=== PATIENT | female | born 1980 | race Caucasian/White ===

== ENCOUNTER 2021-09-23 20:24 | Inpatient (IN) | payer SELFPAY ==
[2021-09-23 21:34] LABS: Urine Blood 2+ (Negative); Urine Glucose Negative (Negative); Urine Protein 1+ (Negative); Urine pH 5.5 (5.0-7.0)
[2021-09-23 21:35] LABS: Absolute Lymphocytes (CBC) 0.7 K/uL (0.7-4.9); Hematocrit 22.1 % (36.0-45.0); Lymphocytes % 7.7 % (15.3-44.8); MPV 11.3 fL (7.6-11.3); RBC Red Blood Cell Count 2.25 M/uL (3.86-4.86)
[2021-09-23 21:39] LABS: Protime INR 1.39
--- NOTE | 2021-09-23 21:44 | RAD REPORT ---
EXAM DESCRIPTION: RAD - Chest Single View - 09/23/2021 9:37 pm CLINICAL HISTORY: dizzinessshortness of breath COMPARISON: None TECHNIQUE: AP portable chest image was obtained 09/23/2021 9:37 pm . FINDINGS: Lungs are clear. Heart and vasculature are normal. No measurable pleural effusion and no p neumothorax. No acute bony abnormality seen. No acute aortic findings suspected. IMPRESSION: No acute cardiopulmonary process.
--- NOTE | 2021-09-23 21:48 | RAD REPORT ---
EXAM DESCRIPTION: CT - CTHCSPWOC - 09/23/2021 9:35 pm CLINICAL HISTORY: dizziness;Pain, headache, neck pain COMPARISON: No comparisons TECHNIQUE: Axial 5 mm thick images of the head were obtained. Axial 2 mm thick images of the cervic al spine were obtained with sagittal and coronal reconstruction images generated and reviewed. All CT scans are performed using dose optimization technique as appropriate and may include automated exposure control or mA/KV adjustment according to patient size. FINDINGS: No intracranial hemorrhage, mass, edema or acute intracranial finding. No suspicion for ac aleksandar infarction. No extra-axial fluid collections. Mastoid air cells and paranasal sinuses are clear. No globe or orbit abnormality seen. Cervical body height and alignment are normal. No disk space narrowing. Spurring and disc bulge chan es are present at C6-7. This does not appear to cause central spinal stenosis. No fracture or acute b vanessa abnormality. Central canal detail is inherently limited. No paraspinal mass or hematoma. IMPRESSION: Negative CT head examination for acute or significant finding. Negative CT cervical spine examination for acute or emergent finding. Central canal detail is inherently limited. Concerns for disc bulge or herniation or other central ca nal abnormality can be further assessed with MR imaging.
[2021-09-23 21:53] LABS: Barbiturates NEGATIVE (NEGATIVE); Benzodiazepines NEGATIVE (NEGATIVE); Cocaine NEGATIVE (NEGATIVE); METHAMPHETAM NEGATIVE (NEGATIVE); Methadone NEGATIVE (NEGATIVE); Opiates NEGATIVE (NEGATIVE); Phencyclidine NEGATIVE (NEGATIVE); THC Cannibis NEGATIVE (NEGATIVE)
[2021-09-23 21:57] LABS: Albumin 3.3 g/dL (3.4-5.0); Bilirubin Direct 1.2 mg/dL (0-0.2); Bilirubin Total 1.7 mg/dL (0.2-1.0); Magnesium 1.9 mg/dL (1.8-2.4); Protein, Total 6.6 g/dL (6.4-8.2); Troponin High Sensitivity 56.8 pg/mL (<58.9)
[2021-09-23 22:15] LABS: SARS-COV-2 RT PCR NEGATIVE (NEGATIVE)
[2021-09-23] MEDS ORDERED: NA CHLORIDE 0.9% 1,000 ML ONE (22:26)
[2021-09-23] MEDS ORDERED: KCL 20 MEQ/100 mL IVPB 100 ML IV ONE (22:43)
[2021-09-23] MEDS ORDERED: NA CHLORIDE 0.9% 500 ML ONE (23:14)
--- NOTE | 2021-09-24 00:09 | EDPHYS ---
Physician Documentation [facility] Name: Nydia Beasley Age: 40 yrs Sex: Female : 1980 Arrival Date: 09/23/2021 Time: 20:46 Bed 17 Private MD: ED Physician Aurelio Jesus HPI: 09/23 21:22 This 40 yrs old Female presents to ER via EMS with complaints of Dizziness. mh7 21:22 The patient presents with dizziness, lightheadedness. Onset: The symptoms/episode mh7 began/occurred 5 day(s) ago. Context: occurred at home, occurred while the patient was standing, just prior to the episode the patient experienced no apparent symptoms. Modifying factors: The symptoms are alleviated by nothing, the symptoms are aggravated by standing up. Associated signs and symptoms: Pertinent positives: nausea, vomiting, Pertinent negatives: abdominal pain, agitation, ataxia, blurred vision, chest pain, combativeness, confusion, diaphoresis, focal weakness, head injury, headache, near-syncope, numbness, palpitations, , seizure, shortness of breath, syncope, tingling. Severity of symptoms: At their worst the symptoms were moderate 3 day(s) ago, in the emergency department the symptoms have improved moderately. Patient's baseline: Neuro: alert and fully oriented, Motor: no deficits, Ambulation: walks without assistance, Speech: normal. Patient states that her recently . His was 6 days ago and she started to have dizziness with lightheaded sensation and nausea and vomiting the next day. She denies any fever, headache, cough, chest pain, abdominal pain, diarrhea, dysuria, numbness/tingling, or weakness.. 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 Flu vaccine is not up to date. - Social history:: Smoking status: Patient denies any tobacco usage or history of. Patient/guardian denies using alcohol, street drugs. ROS: 21:22 Constitutional: Negative for fever, chills, and weight loss, Eyes: Negative for injury, mh7 pain, redness, and discharge, ENT: Negative for injury, pain, and discharge, Cardiovascular: Negative for chest pain, palpitations, and edema, Respiratory: Negative for shortness of breath, cough, wheezing, and pleuritic chest pain, Back: Negative for injury and pain, : Negative for injury, bleeding, discharge, and swelling, MS/Extremity: Negative for injury and deformity, Skin: Negative for injury, rash, and discoloration, Neuro: Negative for headache, weakness, numbness, tingling, and seizure, Psych: Negative for depression, anxiety, suicide ideation, homicidal ideation, and hallucinations, Allergy/Immunology: Negative for hives, rash, and allergies, Endocrine: Negative for neck swelling, polydipsia, polyuria, polyphagia, and marked weight changes, Hematologic/Lymphatic: Negative for swollen nodes, abnormal bleeding, and unusual bruising. Exam: 21:22 Constitutional: This is a well developed, well nourished patient who is awake, alert, mh7 and in no acute distress. Head/Face: Normocephalic, atraumatic. Eyes: Pupils equal round and reactive to light, extra-ocular motions intact. Lids and lashes normal. Conjunctiva and sclera are non-icteric and not injected. Cornea within normal limits. Periorbital areas with no swelling, redness, or edema. Neck: Trachea midline, no thyromegaly or masses palpated, and no cervical lymphadenopathy. Supple, full range of motion without nuchal rigidity, or vertebral point tenderness. No Meningismus. Chest/axilla: Normal chest wall appearance and motion. Nontender with no deformity. No lesions are appreciated. Cardiovascular: Regular rate and rhythm with a normal S1 and S2. No gallops, murmurs, or rubs. Normal PMI, no JVD. No pulse deficits. Respiratory: Lungs have equal breath sounds bilaterally, clear to auscultation and percussion. No rales, rhonchi or wheezes noted. No increased work of breathing, no retractions or nasal flaring. Abdomen/GI: Soft, non-tender, with normal bowel sounds. No distension or tympany. No guarding or rebound. No evidence of tenderness throughout. Back: No spinal tenderness. No costovertebral tenderness. Full range of motion. Skin: Warm, dry with normal turgor. Normal color with no rashes, no lesions, and no evidence of cellulitis. MS/ Extremity: Pulses equal, no cyanosis. Neurovascular intact. Full, normal range of motion. Neuro: Awake and alert, GCS 15, oriented to person, place, time, and situation. Cranial nerves II-XII grossly intact. Motor strength 5/5 in all extremities. Sensory grossly intact. Cerebellar exam normal. Normal gait. Psych: Awake, alert, with orientation to person, place and time. Behavior, mood, and affect are within normal limits. 09/24 00:05 : CVA tenderness, is absent, Pelvic Exam: External exam: is normal, Speculum exam: [facility] scant bleeding, blood clots in vaginal vault, no cervicitis, os that is closed, no tissue in cervix is seen, no tissue in vagina is seen, bimanual exam reveals no cervical motion tenderness, os that is closed, normal sized uterus, no adnexa tenderness or masses bilaterally, the nurse was present for the exam, Bladder: is normal. Vital Signs: 09/23 20:57 BP 96 / 60; Pulse 79; Resp 20; Temp 98.4(O); Pulse Ox 99% ; Pain 0/10; sf1 09/24 00:58 BP 95 / 70; Pulse 76; Resp 18; Pulse Ox 100% ; sf1 03:12 BP 107 / 68; Pulse 76; Resp 18; Pulse Ox 97% ; sf1 MDM: 00:06 Differential diagnosis: cardiac arrhythmia, CVA, generalized weakness, GI bleed, head mh7 injury, hyperventilation, hypovolemia, idiopathic dizziness, near-syncope, , sepsis, syncope, vertigo. Data reviewed: vital signs, nurses notes, lab test result(s), cardiac enzymes, CBC, drug level(s), acetaminophen, alcohol, salicylate, electrolytes, urinalysis, urine drug screen, EKG, radiologic studies, CT scan, plain films. Data interpreted: Pulse oximetry: on room air is 99 %. Interpretation: normal. Counseling: I had a detailed discussion with the patient and/or guardian regarding: the historical points, exam findings, and any diagnostic results supporting the discharge/admit diagnosis, lab results, radiology results, the need for further work-up and treatment in the hospital. Response to treatment: the patient's symptoms have mildly improved after treatment. 00:09 Patient medically screened. [facility] 09/23 21:03 Order name: Basic Metabolic Panel [facility] 09/23 21:03 Order name: CBC with Diff [facility] 09/23 21:03 Order name: LFT's; Complete Time: 22:31 [facility] 09/23 21:03 Order name: Magnesium; Complete Time: 22:31 [facility] 09/23 21:03 Order name: NT PRO-BNP; Complete Time: 22:31 [facility] 09/23 21:03 Order name: PT-INR; Complete Time: 22:00 [facility] 09/23 21:03 Order name: Troponin HS; Complete Time: 22:31 [facility] 09/23 21:03 Order name: UDS; Complete Time: 22:00 [facility] 09/23 21:03 Order name: Lipase; Complete Time: 22:31 [facility] 09/23 21:03 Order name: Basic Metabolic Panel; Complete Time: 22:31 [facility] 09/23 21:03 Order name: CBC with Automated Diff; Complete Time: 22:00 [facility] 09/23 21:05 Order name: COVID-19/FLU A+B (Document "Date of Onset" if Symptomatic); Complete Time: [facility] :09/23 21:28 Order name: Acetaminophen; Complete Time: 23:48 [facility] 09/23 21:28 Order name: Salicylate [facility] 09/23 21:03 Order name: XRAY Chest (1 view); Complete Time: 22:00 [facility] 09/23 21:03 Order name: EKG; Complete Time: 21:03 [facility] 09/23 21:05 Order name: CT Head C Spine; Complete Time: 22:00 [facility] 09/23 21:28 Order name: ETOH Level; Complete Time: 23:48 [facility] 09/23 21:33 Order name: Urine Dipstick-Ancillary; Complete Time: 22:00 [facility] 09/23 22:32 Order name: Type And Screen [facility] 09/23 22:34 Order name: CT Abd/Pelvis - Without Contrast [facility] 09/23 22:36 Order name: CPK; Complete Time: 23:48 [facility] 09/23 23:26 Order name: Urine --Ancillary (enter results); Complete Time: 23:48 9 09/24 00:54 Order name: Abdomen Exam Complete [facility] 09/24 01:18 Order name: ABO/RH no charge [facility] 09/24 02:18 Order name: Pelvis Complete [facility] 09/24 02:36 Order name: CONS Physician Consult [facility] 09/24 02:46 Order name: Urine Dipstick-Ancillary [facility] 09/23 21:03 Order name: Cardiac monitoring; Complete Time: 21:36 [facility] 09/23 21:03 Order name: EKG - Nurse/Tech; Complete Time: 21:14 [facility] 09/23 21:03 Order name: IV Saline Lock; Complete Time: 21:14 [facility] 09/23 21:03 Order name: Labs collected and sent; Complete Time: 21:14 [facility] 09/23 21:03 Order name: O2 Per Protocol; Complete Time: 21:14 [facility] 09/23 21:03 Order name: O2 Sat Monitoring; Complete Time: 21:14 [facility] 09/23 21:03 Order name: Urine Dipstick-Ancillary (obtain specimen); Complete Time: 21:36 [facility] 09/23 21:03 Order name: Urine Test (obtain specimen); Complete Time: 21:36 [facility] 09/23 21:28 Order name: Orthostatics; Complete Time: 00:38 [facility] Administered Medications: 09/23 22:45 Drug: Potassium Chloride 20 mEq Route: IV; Rate: per protocol; Site: left antecubital; sf1 Disposition Summary: 09/24/21 00:09 Hospitalization Ordered Hospitalization Status: Inpatient Admission [facility] Provider: Vijaya Fierro [facility] Condition: Stable [facility] Problem: new [facility] Symptoms: have improved [facility] Bed/Room Type: Standard [facility] Room Assignment: 216(09/24/21 03:01) mw Diagnosis - Dizziness and giddiness [facility] - Hypo-osmolality and hyponatremia [facility] - Hypokalemia [facility] - Acute kidney failure, unspecified [facility] Forms: - Medication Reconciliation Form [facility] - SBAR form [facility] Signatures: Dispatcher [employer] [facility] Shakira Funk RN RN mw Holmes, Maurice, MD MD 7 ZiggysBecky RN RN sf1 Corrections: (The following items were deleted from the chart) 09/24 02:18 00:55 Transvaginal Study Probe ordered. [facility] 03:01 00:09 mh7 mw
--- NOTE | 2021-09-24 00:09 | ER ---
Nurse's Notes [facility] Name: Nydia Beasley Age: 40 yrs Sex: Female : 1980 Arrival Date: 09/23/2021 Time: 20:46 Bed 17 Private MD: Diagnosis: Dizziness and giddiness;Hypo-osmolality and hyponatremia;Hypokalemia;Acute kidney failure, unspecified Presentation: 09/23 20:58 Chief complaint: Patient states: dizziness since last Sunday, c/o vomiting and neck sf1 pain intermittent. Coronavirus screen: Vaccine status: Patient reports being unvaccinated. Client denies travel out of the [place] in the last 14 days. Ebola Screen: Patient negative for fever greater than or equal to 101.5 degrees Fahrenheit, and additional compatible Ebola Virus Disease symptoms Patient denies exposure to infectious person. Patient denies travel to an Ebola-affected area in the 21 days before illness onset. Initial Sepsis Screen: Does the patient meet any 2 criteria? No. Patient's initial sepsis screen is negative. Does the patient have a suspected source of infection? No. Patient's initial sepsis screen is negative. Risk Assessment: Do you want to hurt yourself or someone else? Patient reports no desire to harm self or others. Onset of symptoms was September 18, 2021. 20:58 Method Of Arrival: EMS sf1 20:58 Acuity: JENIFFER 3 sf1 Triage Assessment: 20:58 General: Appears in no apparent distress. uncomfortable, Behavior is calm, cooperative, sf1 appropriate for age. Pain: Denies pain. 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 Flu vaccine is not up to date. - Social history:: Smoking status: Patient denies any tobacco usage or history of. Patient/guardian denies using alcohol, street drugs. Screenin/12 01:02 Abuse screen: Denies threats or abuse. Nutritional screening: No deficits noted. sf1 Tuberculosis screening: No symptoms or risk factors identified. Fall Risk None identified. Assessment: 01:02 General: Appears in no apparent distress. Behavior is calm, cooperative, appropriate sf1 for age. Neuro: No deficits noted. Cardiovascular: Reports lightheadedness, Rhythm is sinus rhythm. Respiratory: No deficits noted. GI: Reports vomiting. : No deficits noted. Vital Signs: 09/23 20:57 BP 96 / 60; Pulse 79; Resp 20; Temp 98.4(O); Pulse Ox 99% ; Pain 0/10; sf1 02/ 00:58 BP 95 / 70; Pulse 76; Resp 18; Pulse Ox 100% ; sf1 03:12 BP 107 / 68; Pulse 76; Resp 18; Pulse Ox 97% ; sf1 ED Course: 09/23 20:46 Patient arrived in ED. sf1 20:46 Becky Morse, SIMON is Primary Nurse. sf1 20:47 Aurelio Jesus MD is Attending Physician. 7 20:58 Arm band placed on right wrist. sf1 20:59 Triage completed. sf1 21:00 Inserted saline lock: 20 gauge in left antecubital area, using aseptic technique. Blood sf1 collected. 21:15 Basic Metabolic Panel Sent. sf1 21:15 CBC with Automated Diff Sent. sf1 21:15 Lipase Sent. sf1 21:35 CT Head C Spine In Process Unspecified. EDMS 21:35 Salicylate Sent. sf1 21:35 ETOH Level Sent. sf1 21:35 Acetaminophen Sent. sf1 21:35 COVID-19/FLU A+B (Document "Date of Onset" if Symptomatic) Sent. sf1 21:36 Basic Metabolic Panel Sent. sf1 21:36 CBC with Automated Diff Sent. sf1 21:36 Lipase Sent. sf1 21:36 UDS Sent. sf1 21:36 Basic Metabolic Panel Sent. sf1 21:36 CBC with Diff Sent. sf1 21:36 LFT's Sent. sf1 21:36 Magnesium Sent. sf1 21:36 NT PRO-BNP Sent. sf1 21:36 PT-INR Sent. sf1 21:36 Troponin HS Sent. sf1 21:37 XRAY Chest (1 view) In Process Unspecified. EDMS 23:12 CT Abd/Pelvis - Without Contrast In Process Unspecified. EDMS 02 00:08 Vijaya Fierro MD is Hospitalizing Provider. 7 02:13 Abdomen Exam Complete In Process Unspecified. EDMS 02:18 Pelvis Complete In Process Unspecified. EDMS 03:56 No provider procedures requiring assistance completed. sf1 Administered Medications: 09/23 22:45 Drug: Potassium Chloride 20 mEq Route: IV; Rate: per protocol; Site: left antecubital; [facility] Outcome: 09/24 00:09 Decision to Hospitalize by Provider. Latasha 03:56 Admitted to Med/surg accompanied by nurse, via stretcher, Report called to steffany Guerrero RN 03:56 Condition: good 03:56 Condition: stable 03:57 Patient left the ED. 1 Signatures: Dispatcher [employer] Aurelio Loving MD MD [facility] Becky Morse RN RN 1 Corrections: (The following items were deleted from the chart) 02:18 02:14 In radiology for Transvaginal Study Probe. EDSD EDMS
[2021-09-24 02:47] LABS: Urine Blood 2+ (Negative); Urine Glucose Negative (Negative); Urine Protein Negative (Negative); Urine Specific Gravity 1.025 (1.005-1.030)
[2021-09-24] MEDS ORDERED: ONDANSETRON 4 MG/2 ML VIAL IV PRN (03:17)
[2021-09-24] MEDS ORDERED: NS KCL 20MEQ 20 MEQ/1,000 ML BAG IV SCH (03:17)
[2021-09-24] MEDS: KCL 20 MEQ/100 mL IVPB 20 MEQ/100 ML BAG IV SCH ×3 (03:59→07:17)
--- NOTE | 2021-09-24 04:04 | P.HP ---
Certification for Inpatient Patient admitted to: Inpatient With expected LOS: >2 Midnights Patient will require the following post-hospital care: None Practitioner: I am a practitioner with admitting privileges, knowledge of patient current condition, hospital course, and medical plan of care. Services: Services provided to patient in accordance with Admission requirements found in Title 42 Section 412.3 of the Code of Federal Regulations Patient History Date of Service: 09/24/21 Reason for admission: ARF, hypokalemia History of Present Illness: Ms. Beasley is a 40 yo F with HTN who presents with dizziness, lightheadness and recurrent falls beginning on Sunday after her 's . She has had persistent nausea and vomiting. She last ate on Sunday and she has been unable to keep fluids down as well. She also reports blurry vision. She was found to be in acute renal failure. Typically takes losartan and HCTZ but says she has not been since the beginning of the week because her blood pressure has been low. Orthostatic VS positive in the ED. She also reports 3 weeks of menorrhaghia with blood clots. She has been using both tampons and pads, and has to change them every 40 minutes. She says typically her periods are regular and last for 7 days. She reports she used to drink 1-2 mixed drinks a day until June 2021, when her was admitted to the hospital for acute liver and renal failure thought to be secondary to his alcohol use disorder. Hgb 7.6 Plt 146 Na 120 K 2.0 Cl 82 BUN 70 Cr 5.59 GFR 9 Glu 120 Tbili 1.7 Dbili 1.2 AST 76 lipase 2580 CTAP IMPRESSION: 1. right ovarian 5.5cm cyst 2. diffuse hepatic steatosis and hepatomegaly CT HEAD IMPRESSION: Negative CT head examination for acute or significant finding. Negative CT cervical spine examination for acute or emergent finding. Central canal detail is inherently limited. Concerns for disc bulge or herniation or other central canal abnormality can be further assessed with MR imaging. CXR IMPRESSION: No acute cardiopulmonary process. Allergies No Known Allergies Allergy (Unverified 09/24/21 03:13) - Past Medical/Surgical History Diabetic: No -: HTN Past Surgical History: Patient denies surgical history - Family History Family History: Reviewed- Non-Contributory - Social History Smoking Status: Never smoker Alcohol use: No CD- Drugs: No Caffeine use: No Place of Residence: Home Review of Systems 10-point ROS is otherwise unremarkable General: Weakness Eyes: Vision Change ENT: Unremarkable Respiratory: Unremarkable Cardiovascular: Light Headedness Gastrointestinal: Nausea, Vomiting Genitourinary: Unremarkable Musculoskeletal: Neck Pain Integumentary: Bruising Neurological: Unremarkable Lymphatics: Unremarkable Physical Examination - Physical Exam General: Alert, In no apparent distress, Oriented x3, Cooperative HEENT: Atraumatic, PERRLA, Mucous membr. moist/pink, EOMI, Sclerae nonicteric Neck: Supple, 2+ carotid pulse no bruit, No LAD, Without JVD or thyroid abnormality Respiratory: Clear to auscultation bilaterally, Normal air movement Cardiovascular: No edema, Normal pulses, Regular rate/rhythm, Normal S1 S2, No gallops, No rubs Gastrointestinal: Normal bowel sounds, Soft and benign, Non-distended, No ascites, No tenderness, No masses, No rebound, No guarding Musculoskeletal: No tenderness Integumentary: No rashes Neurological: Normal speech, Normal strength at 5/5 x4 extr, Normal tone, Normal affect Lymphatics: No axilla or inguinal lymphadenopathy - Studies Laboratory Data (last 24 hrs) 09/23/21 21:25: PT 16.0 H, INR 1.39 09/23/21 21:25: WBC 8.40, Hgb 7.6 L, Hct 22.1 L, Plt Count 146 L 09/23/21 21:25: Sodium 120 L, Potassium 2.0 L*, BUN 70 H, Creatinine 5.59 H*, Glucose 120 H, Magnesium 1.9, Total Bilirubin 1.7 H, AST 76 H, ALT 35, Alkaline Phosphatase 96, Lipase 2580 H Assessment and Plan - Problems (Diagnosis) (1) Acute renal failure Current Visit: Yes Status: Acute Qualifiers: Acute renal failure type: unspecified Qualified Code(s): N17.9 - Acute kidney failure, unspecified (2) Hypokalemia Current Visit: Yes Status: Acute (3) Hyponatremia Current Visit: Yes Status: Acute (4) Hypotension Current Visit: Yes Status: Acute Qualifiers: Hypotension type: unspecified hypotension type Qualified Code(s): I95.9 - Hypotension, unspecified (5) Dehydration Current Visit: Yes Status: Acute (6) Anemia Current Visit: Yes Status: Chronic Qualifiers: Anemia type: unspecified type Qualified Code(s): D64.9 - Anemia, unspecified (7) Menorrhagia Current Visit: Yes Status: Acute Qualifiers: Menorrhagia type: with regular cycle Qualified Code(s): N92.0 - Excessive and frequent menstruation with regular cycle - Plan on tele, fall precautions nephrology consulted continue IV fluid hydration continue potassium replacement monitor BMP q 6 hours anemia workup pending, transfuse if hemoglobin <7 TSH, T4 pending; lipid profile pending daily amylase and lipase DVT ppx Discharge Plan: Home Plan to discharge in: Greater than 2 days - Advance Directives Does patient have a Living Will: No Does patient have a Durable POA for Healthcare: No - Code Status/Comfort Care Code Status Assessed: Yes (full code ) Critical Care: No Time Spent Managing Pts Care (In Minutes): 70
[2021-09-24 05:04] LABS: Albumin 3.5 g/dL (3.4-5.0); Bilirubin Total 1.7 mg/dL (0.2-1.0); Phosphorus 2.8 mg/dL (2.5-4.9)
[2021-09-24 05:07] LABS: Absolute Lymphocytes (CBC) 0.6 K/uL (0.7-4.9); Hematocrit 24.1 % (36.0-45.0); Lymphocytes % 8.8 % (15.3-44.8); MPV 10.7 fL (7.6-11.3); RBC Red Blood Cell Count 2.44 M/uL (3.86-4.86)
[2021-09-24 05:17] LABS: Potassium 2.3 mmol/L (3.5-5.1)
[2021-09-24 05:24] LABS: Ferritin 139.7 ng/mL (8-388); Thyroid Stimulating Hormone 0.853 uIU/mL (0.360-3.740); Uric Acid 11.4 mg/dL (2.6-6.0)
[2021-09-24] MEDS ORDERED: D5W 1,000 ML with POTASSIUM CL 20 MEQ IV SCH ×2 (06:00)
[2021-09-24] MEDS ORDERED: NA CHLORIDE 0.9% 250 ML ONE (06:38)
[2021-09-24] MEDS: INSULIN -REGULAR HUMAN 50 UNIT/0.5 ML ML SQ SCH ×4 (07:30→21:00)
--- NOTE | 2021-09-24 07:32 | RAD REPORT ---
EXAM DESCRIPTION: US - Pelvis Complete - 09/24/2021 2:17 am CLINICAL HISTORY: menorrhagia Pelvic pain. COMPARISON: No comparisons FINDINGS: The uterus is normal in size, shape and echotexture. The uterus measures . The endometrial stripe measures 3 mm, normal Enlarged right ovary due to a simple appearing cyst measuring approximately 5 cm. The right ovary me asures 5.7 x 4.6 x 4.6 cm with volume of 63 cc. The left ovary measures 1.8 x 1.9 x 2 cm with volume of 3.8 cc.. No ovarian or parovarian lesions. Normal Doppler blood flow was demonstrated to both ovaries. No significant pelvic ascites. IMPRESSION: Bilateral ovarian blood flow. Simple right ovarian cyst. No follow-up required.
--- NOTE | 2021-09-24 07:34 | RAD REPORT ---
EXAM DESCRIPTION: US - Abdomen Exam Complete - 09/24/2021 2:13 am CLINICAL HISTORY: Abdominal pain COMPARISON: Abdomen Pelvis Wo Contrast dated 09/23/2021 FINDINGS: No aortic aneurysm. Increased echogenicity of the liver consistent with hepatic steatosis. Hepatomegaly. The portal vein is patent. The IVC at the level of the liver is unremarkable. No ascites. The gallbladder is unremarkable. No pericholecystic fluid, wall thickening, or gallstones identified. No biliary ductal dilatation. The pancreas was grossly unremarkable. The right kidney measures 12 cm normal echotexture. No hydronephrosis. No suspicious masses. The left kidney measures 11.9 cm with a normal echotexture. No hydronephrosis. No suspicious masses. The spleen is unremarkable. IMPRESSION: Hepatomegaly with steatosis.
[2021-09-24] MEDS ORDERED: POTASSIUM CL SA 10 MEQ TAB PO ONE ×2 (10:00→14:48)
[2021-09-24] MEDS ORDERED: POTASSIUM CL SA 10 MEQ TAB PO SCH (10:00)
[2021-09-24 10:32] LABS: Potassium 2.6 mmol/L (3.5-5.1)
[2021-09-24] MEDS ORDERED: NA CHLORIDE 0.9% 1,000 ML IV SCH (11:00)
--- NOTE | 2021-09-24 11:14 | P.PN ---
Date of Service: 09/24/21 Patient currently has no new complaint. She is tolerating diet, no nausea or vomiting Sodium level has improved, and cleared by 8 mEq since admission Hypokalemia. Diagnosis: Acute renal failure Hyponatremia Acute blood loss anemia. Hypokalemia. Plan: Serum creatinine is trending down. Sodium level correcting too fast. We will start Ringer's lactate. Continue to monitor BMP Nephrology is following. Monitor H&H and transfuse as needed for hemoglobin less than 7. Diet as tolerated.
[2021-09-24 11:17] LABS: Urine Appearance CLOUDY (Clear); Urine Bilirubin NEGATIVE (Negative); Urine Blood 3+ (Negative); Urine Color DK YELLOW (Yellow); Urine Glucose NEGATIVE (Negative); Urine Protein 2+ (Negative); Urine Specific Gravity <=1.005 (1.005-1.030)
[2021-09-24 11:27] LABS: Urine Microscopic Reflex ORDER UMIC
[2021-09-24 11:35] LABS: Urine Bacteria 20-50 /HPF (<20); Urine RBC 20-50 /HPF (NONE SEEN)
[2021-09-24 11:51] LABS: UR PROTEIN 76.7 mg/dL (<11.9); Urine Protein/Creatinine Ratio 1.67 ratio (<0.15)
[2021-09-24] MEDS: Ringers Lactate 1,000 ML IV SCH ×2 (13:19→22:00)
[2021-09-24] MEDS ORDERED: D5W 300 ML IV SCH (15:00)
[2021-09-24] MEDS ORDERED: POTASSIUM CL 40 MEQ in NA CHLORIDE 0.9% 500 ML IV SCH (16:00)
--- NOTE | 2021-09-24 17:12 | P.CNS ---
Date of Consult: 09/24/21 Reason for Consult: JACQUELIN, hyponatremia, hypokalemia Chief Complaint: ARF, hypokalemia History of Present Illness: A 40 yo F with HTN on losartan and HCTZ who presents with dizziness, lightheadedness and recurrent falls beginning on Sunday after her 's . Pt wnt to outpatient clinic on Sunday , prescribed Antiemtic, symptoms improved , but she continued with poor oral intake and increased her fluid intake , she is not on SSRI , denied NSAID intake , in ER Na 120, K 2.6, Cr 5.9 ROS General : weak HEENT: Denies dry, vision changes and headache Resp: denies SOB, cough or wheezes Cardiovascular: : denied chest pain, palpitation GI: nausea and vomiting resolved , denies abdominal pain, diarrhea or constipation : denies dysuria, urgency, foamy urine or blood tinged urine Musculoskeletal: denies muscle aches, joint pain Endo: denies polyuria and and polydipsia Extre: denies pain numbness and swelling Physical exam General: AAOx3, NAD, obese CHEST; CTAB, no wheezes or rales HEART : RRR. Normal S1,2 no murmur or rub Abd: soft, Nt Ext: no edema Skin : No rash A/P JACQUELIN due to dehydration Cr down to 3.9 US: no hydro avoid NSAId and contrast will dc IVF Hypovolemic hyponatremia due to dehydration and HCTZ target sodium 126 this evening and 132 by tomorrow's evening hold IVF encourage food intake potassium replacement Hypokalemia due to poor oral inatke and HCTZ cont replacement will check Mg and TSH Anemia possibly due to menorrahge pelvic US: neagive will start IV iron Allergies No Known Allergies Allergy (Unverified 09/24/21 03:13) Home Medications: Losartan Potassium [Cozaar] 25 mg PO BID 09/24/21 Ondansetron [Zofran] 4 mg PO Q6H PRN 09/24/21 hydroCHLOROthiazide [Hydrochlorothiazide*] 12.5 mg PO DAILY 09/24/21 - Past Medical/Surgical History Diabetic: No -: HTN - Social History Alcohol use: No CD- Drugs: No Caffeine use: No Place of Residence: Home Physical Examination Temp Pulse Resp BP Pulse Ox 97.5 F 75 20 106/44 L 100 09/24/21 12:00 09/24/21 13:00 09/24/21 09:00 09/24/21 09:00 09/24/21 13:00 Laboratory Data (last 24 hrs) 09/23/21 21:25: PT 16.0 H, INR 1.39 09/23/21 21:25: WBC 8.40, Hgb 7.6 L, Hct 22.1 L, Plt Count 146 L 09/23/21 21:25: Sodium 120 L, Potassium 2.0 L*, BUN 70 H, Creatinine 5.59 H*, Glucose 120 H, Magnesium 1.9, Total Bilirubin 1.7 H, AST 76 H, ALT 35, Alkaline Phosphatase 96, Lipase 2580 H
--- NOTE | 2021-09-24 18:33 | RAD REPORT ---
EXAM DESCRIPTION: CT - Abdomen Pelvis Wo Contrast - 09/24/2021 7:22 am CLINICAL HISTORY: NAUSEA / VOMITING. COMPARISON: None. TECHNIQUE: Serial axial CT images were obtained from above the diaphragm through the pubic symphysis without administration of intravenous or oral contrast. All CT scans are performed using dose optimization techniques as appropriate, including automated exp osure control and/or standardized protocols, where dose is adjusted for indication for exam and body habitus. FINDINGS: Thoracic: No significant abnormality. Hepatobiliary: Diffuse hepatic steatosis. Hepatomegaly, measuring 20.4 cm in length No obvious concer meng hepatic lesion identified in the absence of intravenous contrast. The gallbladder is unremarkabl e. No biliary ductal dilatation. Pancreas: Unremarkable. Spleen: Unremarkable. Gastrointestinal: No evidence of bowel obstruction or perienteric inflammation. The appendix is brionna l. Adrenals: No abnormality identified in either adrenal gland. Renal: No obvious parenchymal abnormality in either kidney in the absence of intravenous contrast. No hydronephrosis or urolithiasis. Bladder/Reproductive: Unremarkable appearance of the urinary bladder by CT technique. Right ovarian 5 .5 cm cyst. Vascular/Lymphatics: No lymphadenopathy identified by CT size criteria. Abdominal aorta is normal in caliber. Musculoskeletal: No concerning osseous lesion identified. Mild disc height loss at L5-S1. Fluid / peritoneum: No significant free fluid. No free intraperitoneal air identified. IMPRESSION: 1. Right ovarian 5.5 cm cyst. If there is clinical concern for ovarian torsion, recomm end correlation with pelvic ultrasound with Doppler evaluation of the right ovary. Otherwise, recomme nd prompt follow-up with pelvic ultrasound to evaluate for resolution of the cyst (Reference: JACR Sep;17(2):248-254). 2. No pelvic free fluid identified. 3. Diffuse hepatic steatosis and hepatomegaly. Electronically signed by: Niki Kay MD 09/23/2021 11:29 PM EDGING SUPERVISOR Due to temporary technical issues with the PACS/Fluency reporting system, reports are being signed by the in house radiologists without review as a courtesy to insure prompt reporting. The interpreting radiologist is fully responsible for the content of the report.
[2021-09-24 20:10] LABS: Potassium 3.9 mmol/L (3.5-5.1)
[2021-09-24] MEDS ORDERED: D5W 1,000 ML IV SCH (21:00)
[2021-09-24] MEDS: MIDODRINE HCL 5 MG TABLET PO SCH (21:30)
[2021-09-24] MEDS: D5W 1,000 ML IV SCH (23:01)
[2021-09-24 23:54] LABS: Albumin 2.9 g/dL (3.4-5.0); Bilirubin Total 1.1 mg/dL (0.2-1.0); Potassium 3.5 mmol/L (3.5-5.1)
[2021-09-25] MEDS: D5W 1,000 ML IV SCH ×15 (00:03→23:00)
[2021-09-25] MEDS ORDERED: POTASSIUM CL SA 10 MEQ TAB PO ONE ×3 (00:32→20:00)
[2021-09-25] MEDS ORDERED: D5W 500 ML IV SCH (01:00)
[2021-09-25 05:46] LABS: Absolute Lymphocytes (CBC) 0.6 K/uL (0.7-4.9); Lymphocytes % 14.2 % (15.3-44.8); MPV 10.6 fL (7.6-11.3); RBC Red Blood Cell Count 2.01 M/uL (3.86-4.86)
[2021-09-25 05:53] LABS: Protime INR 1.36
[2021-09-25 06:07] LABS: Albumin 2.7 g/dL (3.4-5.0); Potassium 3.4 mmol/L (3.5-5.1); Protein, Total 5.6 g/dL (6.4-8.2)
[2021-09-25] MEDS ORDERED: D5W 1,000 ML IV ONE (06:08)
[2021-09-25 06:16] LABS: Hematocrit 20.2 % (36.0-45.0)
[2021-09-25] MEDS: INSULIN -REGULAR HUMAN 50 UNIT/0.5 ML ML SQ SCH ×4 (07:30→21:00)
[2021-09-25] MEDS: MIDODRINE HCL 5 MG TABLET PO SCH ×3 (08:11→20:33)
[2021-09-25] MEDS ORDERED: DIPHENHYDRAMINE 25 MG TAB/CAP PO ONE (08:30)
[2021-09-25] MEDS: ACETAMINOPHEN 325 MG TABLET PO PRN (09:24)
--- NOTE | 2021-09-25 11:44 | P.PN ---
Subjective Date of Service: 09/25/21 Chief Complaint: ARF, hypokalemia A 40 yo F with HTN on losartan and HCTZ who presents with dizziness, lightheadedness and recurrent falls beginning on Sunday after her 's . Pt wnt to outpatient clinic on Sunday , prescribed Antiemtic, symptoms improved , but she continued with poor oral intake and increased her fluid intake , she is not on SSRI , denied NSAID intake , in ER Na 120, K 2.6, Cr 5.9 Today Na 131 Ployurea, , UO ~450ml/hr Cont D5w replacement to keep pt in even balance target sodium by tonight 132 1 Physical exam General: AAOx3, NAD, obese CHEST; CTAB, no wheezes or rales HEART : RRR. Normal S1,2 no murmur or rub Abd: soft, Nt Ext: no edema Skin : No rash A/P JACQUELIN due to dehydration Cr 5.9 on admission and trending down to 1.5 today US: no hydro avoid NSAId and contrast Hypovolemic hyponatremia sodium overcorrected yesterday , started on D5W , now at target due to dehydration and HCTZ target sodium 132 by evening Cont D5w replacement to keep pt in even fluid balance encourage food intake potassium replacement cont midodrine for now Hypokalemia due to poor oral inatke and HCTZ cont replacement Mg and TSh wnl Anemia possibly due to menorrahge pelvic US: neagive po iron PRBC today Physical Examination - Vital Signs Temperature: 99.9 F Blood Pressure: 88/59 Pulse: 78 Respirations: 20 Pulse Ox (%): 100
[2021-09-25] MEDS ORDERED: NA CHLORIDE 0.9% 100 ML ONE (11:50)
[2021-09-25] MEDS ORDERED: D5W 1,000 ML IV SCH (12:00)
[2021-09-25 12:15] LABS: Platelet Estimate DECR
[2021-09-25 12:16] LABS: Anisocytosis 1+; Blood Morphology Comment NOTED (NOT SEEN); Hypochromasia 2+; Macrocytosis SLIGHT
--- NOTE | 2021-09-25 12:27 | P.PN ---
Subjective Date of Service: 09/25/21 Chief Complaint: ARF, hypokalemia Patient denies any complaint except poor sleep last night. Her hemoglobin dropped to 6.5. Sodium level overcorrected to 135. Patient started on D5 water to reverse the correction. Sodium level is currently 131. Physical Examination - Vital Signs Temperature: 99.9 F Blood Pressure: 88/59 Pulse: 78 Respirations: 20 Pulse Ox (%): 100 - Physical Exam General: Alert, In no apparent distress, Oriented x3 HEENT: Mucous membr. moist/pink, Sclerae nonicteric Neck: JVD not distended Respiratory: Clear to auscultation bilaterally, Normal air movement Cardiovascular: No edema, Regular rate/rhythm, Normal S1 S2, No murmurs Gastrointestinal: Normal bowel sounds, Soft and benign, Non-distended, No tenderness Musculoskeletal: No swelling, No tenderness Integumentary: No rashes, No erythema Neurological: Normal strength at 5/5 x4 extr, Cranial nerves 3-12 intact Assessment And Plan - Current Problems (Diagnosis) (1) Acute blood loss anemia Current Visit: Yes Status: Acute (2) Acute renal failure Current Visit: Yes Status: Acute Qualifiers: Acute renal failure type: unspecified Qualified Code(s): N17.9 - Acute kidney failure, unspecified (3) Dehydration Current Visit: Yes Status: Acute (4) Hypokalemia Current Visit: Yes Status: Acute (5) Hyponatremia Current Visit: Yes Status: Acute (6) Hypotension Current Visit: Yes Status: Acute Qualifiers: Hypotension type: unspecified hypotension type Qualified Code(s): I95.9 - Hypotension, unspecified (7) Menorrhagia Current Visit: Yes Status: Acute Qualifiers: Menorrhagia type: with regular cycle Qualified Code(s): N92.0 - Excessive and frequent menstruation with regular cycle (8) UTI (urinary tract infection) Current Visit: Yes Status: Acute - Plan JACQUELIN improved and almost resolved. Sodium level is now 131. Nephrology is following and managing. Transfuse 1 unit PRBC. Continue to monitor electrolytes and renal function. Replete potassium orally. Diet as tolerated. She is on midodrine for hypotension. Urine culture yielded mixed growth. Start IV Rocephin for possible UTI.
[2021-09-25] MEDS: CEFTRIAXONE 1,000 MG in NA CHLORIDE 0.9% 50 ML IVPB SCH (16:13)
[2021-09-25 18:15] LABS: Potassium 3.6 mmol/L (3.5-5.1)
[2021-09-26] MEDS: NACHLORIDE 0.45% 1,000 ML IV SCH ×4 (00:02→03:00)
[2021-09-26 05:19] LABS: Absolute Lymphocytes (CBC) 0.9 K/uL (0.7-4.9); Hematocrit 25.1 % (36.0-45.0); Lymphocytes % 13.1 % (15.3-44.8); MPV 11.1 fL (7.6-11.3); RBC Red Blood Cell Count 2.57 M/uL (3.86-4.86)
[2021-09-26 06:00] LABS: Albumin 2.8 g/dL (3.4-5.0); Potassium 4.5 mmol/L (3.5-5.1)
[2021-09-26 06:29] LABS: Phosphorus 0.5 mg/dL (2.5-4.9)
[2021-09-26] MEDS ORDERED: POTASS/SODIUM PHOSPHATE 1 PKT POWD.PACK PO ONE (07:30)
[2021-09-26] MEDS: INSULIN -REGULAR HUMAN 50 UNIT/0.5 ML ML SQ SCH ×4 (07:30→20:27)
[2021-09-26] MEDS: FERROUS SULFATE 325 MG TAB PO SCH (08:03)
[2021-09-26] MEDS: CEFTRIAXONE 1,000 MG in NA CHLORIDE 0.9% 50 ML IVPB SCH (08:03)
[2021-09-26] MEDS: MIDODRINE HCL 5 MG TABLET PO SCH ×3 (08:03→20:27)
[2021-09-26 08:51] VITALS: O2SAT 98
[2021-09-26 15:51] LABS: Phosphorus 1.2 mg/dL (2.5-4.9); Potassium 4.1 mmol/L (3.5-5.1)
[2021-09-26 15:54] LABS: Magnesium 1.4 mg/dL (1.8-2.4)
[2021-09-26] MEDS: POTASS/SODIUM PHOSPHATE 1 PKT POWD.PACK PO SCH ×3 (16:34→18:39)
[2021-09-26] MEDS ORDERED: Magnesium Sulfate 2gm IVPB 2 G/50 ML BAG IV ONE (17:00)
[2021-09-26] MEDS ORDERED: THIAMINE 200 MG/2 ML INJ IVP ONE (22:11)
[2021-09-26] MEDS: D5W 1,000 ML IV SCH (22:22)
--- NOTE | 2021-09-27 03:27 | PN ---
Date of Progress Note: 09/26/2021 Chief Complaint: Acute kidney injury, hypokalemia, hyponatremia. History: Patient was taking losartan and hydrochlorothiazide for blood pressure. She developed hypo natremia. She presented to the hospital, was found to have sodium level of 120. She denies nonstero idal anti-inflammatory medication. Sodium level has improved and today sodium level is 136, potassiu m 4.5, chloride 100, CO2 24, BUN 12, creatinine 0.79. Acute kidney injury has resolved. On September 23, her creatinine level was 5.59. Patient was found to have hypophosphatemia, phosphorus level tod ay is 0.5 and she received replacement, phosphorus level has improved to 1.2. Review of Systems: Patient cannot provide review of systems. She is alert, although she is not a good historian. Physical Examination: Lungs: Clear to auscultation. Heart: S1, S2. Abdomen: Soft, benign. Extremities: Slight edema. Impression And Plan: 1.Hyponatremia, hypoosmolar. Sodium yesterday was 132, today is 136 and 137. Continue IV fluids. Patient is started on D5W to prevent overly rapid sodium level correction. 2.Her lipase level was elevated, plan is to re-evaluate lipase. I recommend to consult GI. 3.Hypophosphatemia. Continue replacement. 4.Hypomagnesemia. Patient received IV magnesium. Monitor electrolytes. 5.Acute kidney injury. Renal function has improved. Patient has abdominal ultrasound and CT scan o f the abdomen and pelvis without contrast, it did not show obstructive uropathy. Monitor urine output. EB/MODL Voice ID: [id number] Report ID: [id number]
[2021-09-27 05:16] LABS: Absolute Lymphocytes (CBC) 0.9 K/uL (0.7-4.9); Hematocrit 22.1 % (36.0-45.0); Lymphocytes % 20.3 % (15.3-44.8); MPV 10.4 fL (7.6-11.3); RBC Red Blood Cell Count 2.25 M/uL (3.86-4.86)
[2021-09-27 05:29] LABS: Albumin 2.5 g/dL (3.4-5.0); BUN Blood Urea Nitrogen 9 mg/dL (7-18); Bicarbonate 28 mmol/L (21-32); Glucose Level 107 mg/dL (74-106); Lipase 1449 U/L (73-393); Magnesium 1.7 mg/dL (1.8-2.4); Potassium 3.7 mmol/L (3.5-5.1); Sodium Level 140 mmol/L (136-145)
--- NOTE | 2021-09-27 05:43 | P.PN ---
Subjective Date of Service: 09/27/21 Chief Complaint: ARF, hypokalemia Physical Examination - Vital Signs Temperature: 97.8 F Blood Pressure: 108/68 Pulse: 89 Respirations: 22 Pulse Ox (%): 100 Assessment And Plan - Plan # JACQUELIN 2/2 prereral state Resolved [place] po fluid intake Monitor renal panel # Proteinuria Has subnephrotic proteinuria in the setting of JACQUELIN Recheck random UPCR as outpt # Hypotension BP low normal currently Hx of Htn on HCTZ & Losartan at home BP meds d/c'ed on hosp adm Trop & BNP wnl No e/o SIRS/sepsis. No pyuria but UCx showed mixed charbel & garcia-sensitive e coli. No need for abx at this time. Dc Midodrine Check TTE 8am serum cortisol low at 7.6 F/u serum DHEAS & 8am serum ACTH Keep MAP > 65 Check orthostatic vitals OOB w/ PT # Menorrhagia S/p pRBC transf # Thrombocytopenia LFT unremarkable CT A/P showed hepatic steatosis LDH wnl, f/u haptoglobin No serum or urine protein gap. Paraprotein dse unlikely. # Anemia w/ iron deficiency Received pRBC transf Normocytic, RDW sig elevated TSH, B12, LFT unremarkable F/u serum folate No indication for Epo # Hyponatremia Resolved, monitor Dc HCTZ permanently # HypoPO4 Repletion ongoing # HypoMg Repletion ongoing # Elevated lipase No e/o pancreatitis JACQUELIN & DM probably contributory R/o IBD R/o celiac dse - f/u anti TTG, 25OHD # Dispo Anticipate dc in 1-2d
[2021-09-27] MEDS ORDERED: POTASSIUM PHOS 10 MM in NA CHLORIDE 0.9% 250 ML IV ONE (06:02)
[2021-09-27] MEDS ORDERED: MAGNESIUM SULFATE 1 gm IVPB 1 GM/100 ML BAG IV ONE (06:03)
[2021-09-27] MEDS: D5W 1,000 ML IV SCH ×2 (07:00→16:36)
[2021-09-27] MEDS: INSULIN -REGULAR HUMAN 50 UNIT/0.5 ML ML SQ SCH (07:30)
[2021-09-27] MEDS: CEFTRIAXONE 1,000 MG in NA CHLORIDE 0.9% 50 ML IVPB SCH (08:55)
[2021-09-27] MEDS: FERROUS SULFATE 325 MG TAB PO SCH (08:55)
[2021-09-27] MEDS: MIDODRINE HCL 5 MG TABLET PO SCH (08:55)
[2021-09-27] MEDS: THIAMINE 200 MG/2 ML INJ IVP SCH (08:58)
--- NOTE | 2021-09-27 14:30 | P.PN ---
Subjective Date of Service: 09/26/21 Chief Complaint: ARF, hypokalemia Patient went low blood pressure on midodrine. Status post blood transfusion. her hemoglobin is 8.2 Sodium level corrected. Physical Examination - Vital Signs Temperature: 97.8 F Blood Pressure: 108/68 Pulse: 89 Respirations: 22 Pulse Ox (%): 100 - Physical Exam General: Alert, In no apparent distress, Oriented x3 HEENT: PERRLA, Mucous membr. moist/pink, Sclerae nonicteric Neck: Supple, JVD not distended Respiratory: Clear to auscultation bilaterally, Normal air movement Cardiovascular: No edema, Regular rate/rhythm, Normal S1 S2, No murmurs Capillary refill: <2 Seconds Gastrointestinal: Normal bowel sounds, Soft and benign, Non-distended, No tenderness Musculoskeletal: No swelling Integumentary: No rashes, No cyanosis Neurological: Normal strength at 5/5 x4 extr, Cranial nerves 3-12 intact Assessment And Plan - Current Problems (Diagnosis) (1) Acute blood loss anemia Current Visit: Yes Status: Acute (2) Acute renal failure Current Visit: Yes Status: Acute Qualifiers: Acute renal failure type: unspecified Qualified Code(s): N17.9 - Acute kidney failure, unspecified (3) Dehydration Current Visit: Yes Status: Acute (4) Hypokalemia Current Visit: Yes Status: Acute (5) Hyponatremia Current Visit: Yes Status: Acute (6) Hypotension Current Visit: Yes Status: Acute Qualifiers: Hypotension type: unspecified hypotension type Qualified Code(s): I95.9 - Hypotension, unspecified (7) Menorrhagia Current Visit: Yes Status: Acute Qualifiers: Menorrhagia type: with regular cycle Qualified Code(s): N92.0 - Excessive and frequent menstruation with regular cycle (8) UTI (urinary tract infection) Current Visit: Yes Status: Acute - Plan JACQUELIN resolved. Hyponatremia corrected Nephrology is following and managing. Transfuse 1 unit PRBC. Correct phosphorus Diet as tolerated. She is on midodrine for hypotension. Urine culture yielded mixed growth. Continue IV Rocephin for possible UTI.
--- NOTE | 2021-09-27 14:37 | P.PN ---
Subjective Date of Service: 09/27/21 Chief Complaint: ARF, hypokalemia Patient has no new complaint. Her blood pressure remain borderline low Hemoglobin dropped slightly to 7.3. Physical Examination - Vital Signs Temperature: 97.8 F Blood Pressure: 108/68 Pulse: 89 Respirations: 22 Pulse Ox (%): 100 - Physical Exam General: Alert, In no apparent distress, Oriented x3 HEENT: Mucous membr. moist/pink Neck: Supple, JVD not distended Respiratory: Clear to auscultation bilaterally, Normal air movement Cardiovascular: No edema, Regular rate/rhythm, Normal S1 S2 Gastrointestinal: Soft and benign, Non-distended, No tenderness Musculoskeletal: No swelling Integumentary: No rashes, No cyanosis Neurological: Normal strength at 5/5 x4 extr Assessment And Plan - Current Problems (Diagnosis) (1) Acute blood loss anemia Current Visit: Yes Status: Acute (2) Acute renal failure Current Visit: Yes Status: Acute Qualifiers: Acute renal failure type: unspecified Qualified Code(s): N17.9 - Acute kidney failure, unspecified (3) Dehydration Current Visit: Yes Status: Acute (4) Hypokalemia Current Visit: Yes Status: Acute (5) Hyponatremia Current Visit: Yes Status: Acute (6) Hypotension Current Visit: Yes Status: Acute Qualifiers: Hypotension type: unspecified hypotension type Qualified Code(s): I95.9 - Hypotension, unspecified (7) Menorrhagia Current Visit: Yes Status: Acute Qualifiers: Menorrhagia type: with regular cycle Qualified Code(s): N92.0 - Excessive and frequent menstruation with regular cycle (8) UTI (urinary tract infection) Current Visit: Yes Status: Acute - Plan JACQUELIN resolved. Hyponatremia corrected Nephrology is following and managing. A.m. cortisol to assess for adrenal insufficiency is pending. Echocardiogram ordered given persistent hypotension. Transfuse 1 unit PRBC. Correct phosphorus as needed. Continue midodrine for hypotension. Urine culture yielded mixed growth. She completed 3 days of IV Rocephin for possible UTI.
[2021-09-28] MEDS: D5W 1,000 ML IV SCH ×2 (01:05→08:10)
[2021-09-28] MEDS: ACETAMINOPHEN 325 MG TABLET PO PRN ×2 (04:36→10:48)
[2021-09-28 04:52] VITALS: BMI 32.5
[2021-09-28 05:04] LABS: Absolute Lymphocytes (CBC) 0.8 K/uL (0.7-4.9); Hematocrit 23.5 % (36.0-45.0); Lymphocytes % 22.1 % (15.3-44.8); MPV 10.2 fL (7.6-11.3); RBC Red Blood Cell Count 2.36 M/uL (3.86-4.86)
[2021-09-28 05:31] LABS: Albumin 2.7 g/dL (3.4-5.0); BUN Blood Urea Nitrogen 6 mg/dL (7-18); Bicarbonate 29 mmol/L (21-32); Glucose Level 105 mg/dL (74-106); Lipase 1269 U/L (73-393); Phosphorus 3.9 mg/dL (2.5-4.9); Potassium 3.7 mmol/L (3.5-5.1); Sodium Level 138 mmol/L (136-145)
[2021-09-28] MEDS ORDERED: POTASSIUM CL SA 10 MEQ TAB PO ONE (05:38)
[2021-09-28 06:00] LABS: Magnesium 1.6 mg/dL (1.8-2.4)
--- NOTE | 2021-09-28 06:20 | P.PN ---
Subjective Date of Service: 09/28/21 Chief Complaint: ARF, hypokalemia Subjective: Other (denies N/V/D/dizziness.) Physical Examination - Vital Signs Temperature: 97.7 F Blood Pressure: 112/81 Pulse: 75 Respirations: 24 Pulse Ox (%): 99 - Physical Exam General: Alert, In no apparent distress HEENT: Atraumatic, Normocephalic Neck: Supple, JVD not distended Respiratory: Clear to auscultation bilaterally Cardiovascular: No rubs, No murmurs Gastrointestinal: Soft and benign, No guarding Musculoskeletal: No clubbing, No swelling Integumentary: No warmth Neurological: Normal speech, Normal tone Urinary: Other (no bladder distention) External genitalia: Deferred Rectal: Deferred Assessment And Plan - Plan # JACQUELIN 2/2 prereral state Resolved Dc IV fluid Dc [place] po fluid intake Monitor renal panel # Proteinuria Has subnephrotic proteinuria in the setting of JACQUELIN Recheck random UPCR as outpt # Hypotension Midodrine d/c'ed yesterday BP low normal currently Hx of Htn on HCTZ & Losartan at home BP meds d/c'ed on hosp adm B12, Trop & BNP wnl No e/o SIRS/sepsis. No pyuria but UCx showed mixed charbel & garcia-sensitive e coli. No need for abx at this time. F/u TTE 8am serum cortisol low at 7.6 F/u SPEP, serum TASHIA, K:L SFLC, random urine UPEP, serum DHEAS & 8am serum ACTH Keep MAP > 65 Recheck orthostatic vitals - if positive, she agreed to wear bilateral thigh high graduated compression stockings, 20-30 mmHg ankle pressure, wear during the daytime, remove at bedtime, to mitigate orthostasis OOB w/ PT # Menorrhagia S/p pRBC transf # Thrombocytopenia LFT unremarkable CT A/P showed hepatic steatosis LDH wnl, f/u haptoglobin No serum or urine protein gap. Paraprotein dse unlikely. 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 ? IBD, ? celiac dse - f/u anti TTG; further workup per outpt GI service # Vit D deficiency 25OHD low Start D3 5000 IU po daily F/u serum iPTH level # Dispo May dc today from renal standpoint F/u w/ me in clinic in 1 wk w/ repeat renal panel, Mg, UPCR, CBC w/ plt
[2021-09-28] MEDS: THIAMINE 200 MG/2 ML INJ IVP SCH (08:11)
[2021-09-28] MEDS: FERROUS SULFATE 325 MG TAB PO SCH (08:12)
[2021-09-28] MEDS ORDERED: Magnesium Sulfate 2gm IVPB 2 G/50 ML BAG IV ONE (09:29)
[2021-09-28] MEDS: VITAMIN D 5,000 UNIT CAP PO SCH (10:39)
--- NOTE | 2021-09-28 10:46 | P.PN ---
Subjective Date of Service: 09/28/21 Chief Complaint: ARF, hypokalemia Subjective: No new changes (feels fine) Physical Examination - Vital Signs Temperature: 97.7 F Blood Pressure: 112/81 Pulse: 75 Respirations: 24 Pulse Ox (%): 99 Assessment And Plan Physician Review Additional Text: 09/28/21 10:44 - Physical Exam General: Alert, In no apparent distress, Oriented x3 HEENT: Mucous membr. moist/pink Neck: Supple, JVD not distended Respiratory: Clear to auscultation bilaterally, Normal air movement Cardiovascular: No edema, Regular rate/rhythm, Normal S1 S2 Gastrointestinal: Soft and benign, Non-distended, No tenderness Musculoskeletal: No swelling Integumentary: No rashes, No cyanosis Neurological: Normal strength at 5/5 x4 extr Assessment And Plan - Current Problems (Diagnosis) (1) Acute blood loss anemia Current Visit: Yes Status: Acute (2) Acute renal failure Current Visit: Yes Status: Acute Qualifiers: Acute renal failure type: unspecified Qualified Code(s): N17.9 - Acute kidney failure, unspecified (3) Dehydration Current Visit: Yes Status: Acute (4) Hypokalemia Current Visit: Yes Status: Acute (5) Hyponatremia Current Visit: Yes Status: Acute (6) Hypotension Current Visit: Yes Status: Acute Qualifiers: Hypotension type: unspecified hypotension type Qualified Code(s): I95.9 - Hypotension, unspecified (7) Menorrhagia Current Visit: Yes Status: Acute Qualifiers: Menorrhagia type: with regular cycle Qualified Code(s): N92.0 - Excessive and frequent menstruation with regular cycle (8) UTI (urinary tract infection) Current Visit: Yes Status: Acute - Plan -still low H/H , stool for occult blood seen significant iron deficiency anemia Follow pending echocardiogram given recurrent hypotension -Wean off midodrine -Status post completed IV Rocephin for UTI although urine culture YIELDED mixed growth Resolved hyponatremia and acute kidney injury Doubt clinical picture related to adrenal insufficiency or poor p.o. intake appears to be more consistent with sepsis autonomic dysfunction Follow repeat H&H in a.m., if still trending down, will invite GI for EGD and colonoscopy Transfer to [facility], [place] catheter.
[2021-09-28] MEDS: SOD FERRIC GLUC COMPLX/SUCROSE 250 MG in NA CHLORIDE 0.9% 250 ML IV SCH (11:34)
--- NOTE | 2021-09-28 13:46 | ECHO ---
HEIGHT: 5 ft 5 in WEIGHT: 195 lb 12.8 oz DATE OF STUDY: 09/27/[address]: felicia madrigal 2-DIMENSIONAL: YES M.MODE: YES DOPPLER: YES COLOR FLOW: YES TDS: NO PORTABLE: YES DEFINITY: NO BUBBLE STUDY: NO DIAGNOSIS: HYPOTENSION CARDIAC HISTORY: CATHERIZATION: NO SURGERY: NO PROSTHETIC VALVE: NO PACEMAKER: NO MEASUREMENTS (cm) DIASTOLIC (NORMALS) SYSTOLIC (NORMALS) IVSd 0.8 (0.6-1.2) LA Diam 3.8 (1.9-4.0) LVEF 72% LVIDd 5.0 (3.5-5.7) LVIDs 2.9 (2.0-3.5) %FS 41% LVPWd 1.1 (0.6-1.2) Ao Diam 2.9 (2.0-3.7) 2 DIMENSIONAL ASSESSMENT: RIGHT ATRIUM: NORMAL LEFT ATRIUM: NORMAL RIGHT VENTRICLE: NORMAL LEFT VENTRICLE: NORMAL TRICUSPID VALVE: NORMAL MITRAL VALVE: NORMAL PULMONIC VALVE: NORMAL AORTIC VALVE: NORMAL PERICARDIAL EFFUSION: NONE AORTIC ROOT: NORMAL LEFT VENTRICULAR WALL MOTION: NORMAL. DOPPLER/COLOR FLOW: NORMAL. COMMENTS: NORMAL 2D ECHO WITH DOPPLER. NO WALL MOTION ABNORMALITY. NO EFFUSION. TECHNOLOGIST: NESSA HALL
[2021-09-28] MEDS ORDERED: MELATONIN 5 MG TABLET PO PRN (19:50)
[2021-09-28] MEDS: ALPRAZOLAM 0.25 MG TABLET PO SCH (21:35)
[2021-09-29 06:36] LABS: Absolute Lymphocytes (CBC) 0.8 K/uL (0.7-4.9); Hematocrit 24.2 % (36.0-45.0); Lymphocytes % 17.8 % (15.3-44.8); MPV 9.7 fL (7.6-11.3); RBC Red Blood Cell Count 2.43 M/uL (3.86-4.86)
[2021-09-29 06:54] LABS: ALT/SGPT 45 U/L (12-78); AST/SGOT 73 U/L (15-37); Albumin 2.9 g/dL (3.4-5.0); Alkaline Phosphatase 97 U/L (45-117); BUN Blood Urea Nitrogen 8 mg/dL (7-18); Bicarbonate 28 mmol/L (21-32); Bilirubin Total 0.7 mg/dL (0.2-1.0); Glucose Level 99 mg/dL (74-106); Lipase 1076 U/L (73-393); Potassium 4.3 mmol/L (3.5-5.1); Protein, Total 6.5 g/dL (6.4-8.2); Sodium Level 138 mmol/L (136-145)
[2021-09-29 08:40] VITALS: BP 116/75; TEMP 98.9
[2021-09-29] MEDS: THIAMINE 200 MG/2 ML INJ IVP SCH ×2 (09:00→10:17)
[2021-09-29] MEDS: SOD FERRIC GLUC COMPLX/SUCROSE 250 MG in NA CHLORIDE 0.9% 250 ML IV SCH (09:00)
--- NOTE | 2021-09-29 09:48 | P.DS ---
Admission Date: 09/24/21 Discharge Date: 09/29/21 Disposition: ROUTINE DISCHARGE Discharge Condition: FAIR Reason for Admission: ARF, hypokalemia Brief History of Present Illness: History of Present Illness: Ms. Beasley is a 40 yo F with HTN who presents with dizziness, lightheadness and recurrent falls beginning on Sunday after her 's . She has had persistent nausea and vomiting. She last ate on Sunday and she has been unable to keep fluids down as well. She also reports blurry vision. She was found to be in acute renal failure. Typically takes losartan and HCTZ but says she has not been since the beginning of the week because her blood pressure has been low. Orthostatic VS positive in the ED. She also reports 3 weeks of menorrhaghia with blood clots. She has been using both tampons and pads, and has to change them every 40 minutes. She says typically her periods are regular and last for 7 days. She reports she used to drink 1-2 mixed drinks a day until June 2021, when her was admitted to the hospital for acute liver and renal failure thought to be secondary to his alcohol use disorder. Hgb 7.6 Plt 146 Na 120 K 2.0 Cl 82 BUN 70 Cr 5.59 GFR 9 Glu 120 Tbili 1.7 Dbili 1.2 AST 76 lipase 2580 CTAP IMPRESSION: 1. right ovarian 5.5cm cyst 2. diffuse hepatic steatosis and hepatomegaly CT HEAD IMPRESSION: Negative CT head examination for acute or significant finding. Negative CT cervical spine examination for acute or emergent finding. Central canal detail is inherently limited. Concerns for disc bulge or herniation or other central canal abnormality can be further assessed with MR imaging. CXR IMPRESSION: No acute cardiopulmonary process. Hospital Course: Hospital course Patient was admitted initially to the ICU for severe hyponatremia, acute kidney injury as well as marked elevated lipase of greater than 2500. She was started on aggressive IV fluid. Her serum sodium improved and normalized. Her renal function improved to a creatinine of 0.8 now. She continued to have persistent hypokalemia and recurrent hypomagnesemia Which were repleted. She was noted with vitamin D deficiency as well as iron deficiency. Work-up for severe iron deficiency anemia with iron sat of 4% was done. She was started on IV loading dose of iron and hemoglobin improved from 7.3-7.9 the time of discharge. Patient symptoms and electrolyte imbalance will felt to be due to history of chronic alcoholism although patient reports quitting prior to recent of her spouse. Need for further avoidance of alcohol was discussed. Patient will be discharged home on thiamine folate as well as magnesium replacement tabs. She was noted with E. coli UTI and was treated with antibiotics. She denies any symptoms now. Patient requested some anxiolytic medication for her recent grief.. Advised her to discuss with her PCP Dr. Pierre regarding initiation of anxiolytics given potential for side effect. I recommended sleep aids with melatonin for her acute grief. Vital Signs/Physical Exam: Temp Pulse Resp BP Pulse Ox 98.9 F 77 20 116/75 99 09/29/21 08:00 09/29/21 08:00 09/29/21 08:00 09/29/21 08:00 09/29/21 08:00 General: Alert, In no apparent distress, Oriented x3 HEENT: Atraumatic, Normocephalic, PERRLA Neck: Supple, 2+ carotid pulse no bruit, JVD not distended Respiratory: Clear to auscultation bilaterally, Normal air movement Cardiovascular: No edema, Normal pulses, Regular rate/rhythm, Normal S1 S2 Gastrointestinal: Normal bowel sounds, Soft and benign, Non-distended Musculoskeletal: No clubbing, No swelling Integumentary: No rashes, No breakdown Neurological: Normal gait, Normal speech, Normal strength at 5/5 x4 extr Laboratory Data at Discharge: WBC 4.40 K/uL (4.3-10.9) D 09/29/21 06:22 Hgb 7.9 g/dL (12.0-15.0) L 09/29/21 06:22 Hct 24.2 % (36.0-45.0) L 09/29/21 06:22 Plt Count 217 K/uL (152-406) D 09/29/21 06:22 PT 15.7 SECONDS (9.5-12.5) H 09/25/21 05:29 INR 1.36 09/25/21 05:29 APTT 28.2 SECONDS (24.3-36.9) 09/25/21 05:29 Sodium 138 mmol/L (136-145) 09/29/21 06:22 Potassium 4.3 mmol/L (3.5-5.1) 09/29/21 06:22 BUN 8 mg/dL (7-18) 09/29/21 06:22 Creatinine 0.55 mg/dL (0.55-1.3) 09/29/21 06:22 Glucose 99 mg/dL (74-106) 09/29/21 06:22 Uric Acid 11.4 mg/dL (2.6-6.0) H 09/24/21 04:18 Phosphorus 3.9 mg/dL (2.5-4.9) D 09/28/21 04:42 Magnesium 1.6 mg/dL (1.8-2.4) L 09/28/21 11:16 Total Bilirubin 0.7 mg/dL (0.2-1.0) 09/29/21 06:22 AST 73 U/L (15-37) H 09/29/21 06:22 ALT 45 U/L (12-78) 09/29/21 06:22 Alkaline Phosphatase 97 U/L (45-117) 09/29/21 06:22 Triglycerides 89 mg/dL (<150) 09/24/21 04:18 Cholesterol 187 mg/dL (<200) 09/24/21 04:18 HDL Cholesterol 37 mg/dL (40-60) L 09/24/21 04:18 Cholesterol/HDL Ratio 5.05 09/24/21 04:18 Amylase 153 U/L (25-115) H 09/24/21 04:18 Lipase 1076 U/L (73-393) H 09/29/21 06:22 Home Medications: Losartan Potassium [Cozaar] 25 mg PO BID 09/24/21 Ondansetron [Zofran] 4 mg PO Q6H PRN 09/24/21 Cholecalciferol (Vitamin D3) [Vitamin D 5,000 IU Cap*] 5,000 unit PO DAILY #30 cap 09/29/21 Ferrous Sulfate 325 mg PO BID #60 tablet 09/29/21 Folic Acid 1 mg PO DAILY #30 tablet 09/29/21 Magnesium Chloride [Slow-Mag*] 64 mg PO BID #60 tab 09/29/21 Melatonin 5 mg PO BEDTIME PRN PRN #15 tablet 09/29/21 Thiamine HCl 100 mg PO DAILY #30 tablet 09/29/21 New Medications: Ferrous Sulfate 325 mg PO BID #60 tablet Folic Acid 1 mg PO DAILY #30 tablet Melatonin 5 mg PO BEDTIME PRN PRN #15 tablet PRN Reason: Insomnia Magnesium Chloride [Slow-Mag*] 64 mg PO BID #60 tab Thiamine HCl 100 mg PO DAILY #30 tablet Cholecalciferol (Vitamin D3) [Vitamin D 5,000 IU Cap*] 5,000 unit PO DAILY #30 cap Physician Discharge Instructions: Avoid further alcohol use Diet: Regular Activity: Ad anju Followup: NONE,NONE [Primary Care Provider] - 1 Week (FOLLOW WITH PT PCP- Dr Pierre ) Time spent managing pt's care (in minutes): 45
[2021-09-29] MEDS: VITAMIN D 5,000 UNIT CAP PO SCH (10:17)
[2021-09-29] MEDS: ALPRAZOLAM 0.25 MG TABLET PO SCH (10:17)
[2021-09-29] MEDS: FERROUS SULFATE 325 MG TAB PO SCH (10:17)
[2021-10-01 05:09] LABS: KAPPA LIGHT CHAIN, FREE SERUM 15.2 mg/L (3.3-19.4)
[2021-10-01 09:08] LABS: Tissue Transglutaminase IgA Ab <1.0 U/mL (<15.0)
[2021-10-02 04:35] LABS: Albumin, (SPE) 3.1 g/dL (3.8-4.8); Alpha-1-Globulins 0.4 g/dL (0.2-0.3); Alpha-2-Globulins 0.7 g/dL (0.5-0.9); Gamma Globulins 0.6 g/dL (0.8-1.7); INTERPRETATION REPORT
== END 2021-09-29 10:45 | disposition home or self-care (01) | DRG 683 ==
LOC: ER 20:24 → ERHOLD 09-24 02:48 → 2ND 09-24 03:30 → 3RD-ICU 09-24 07:15 → 2ND 09-28 18:25
PROVIDERS: ADMIT Internal Medicine; ATTEND Internal Medicine
PROC: 30233N1 Transfusion of Nonautologous Red Blood Cells into Peripheral Vein, Percutaneous Approach (ICD-10-PCS; principal; 2021-09-25)
DX: N17.9 Acute kidney failure, unspecified (principal); E87.1 Hypo-osmolality and hyponatremia; N39.0 Urinary tract infection, site not specified; D62 Acute posthemorrhagic anemia; K90.9 Intestinal malabsorption, unspecified; E87.6 Hypokalemia; E83.42 Hypomagnesemia; E55.9 Vitamin D deficiency, unspecified; D50.9 Iron deficiency anemia, unspecified; B96.20 Unspecified Escherichia coli [E. coli] as the cause of diseases classified elsewhere; E86.0 Dehydration; F10.21 Alcohol dependence, in remission; I95.9 Hypotension, unspecified; N92.0 Excessive and frequent menstruation with regular cycle; D69.6 Thrombocytopenia, unspecified; Z20.822 Contact with and (suspected) exposure to COVID-19
CPT/HCPCS: 0240U; 36415; 70450; 71045; 72125; 74176; 76700; 76856; 80048; 80053; 80061; 80069; 80076; 80307; 80320; 80329; 81003; 81015; 81025; 82024; 82150; 82306; 82533; 82550; 82570; 82607; 82627; 82728; 82747; 82947; 83010; 83516; 83520; 83540; 83605; 83615; 83690; 83735; 83880; 83930; 83935; 83970; 84100; 84132; 84156; 84165; 84300; 84439; 84443; 84466; 84484; 84550; 85014; 85018; 85025; 85610; 85730; 86334; 86850; 86900; 86901; 87077; 87086; 87088; 87186; 93005; 93306; 96374; 97116; 97161; 99285; J2916; J3411; J3475; J3480; J7030; J7040; J7050; J7120; P9016